=== PATIENT | female | born 1950 | race Caucasian/White ===

== ENCOUNTER 2023-06-08 22:04 | Emergency (ER) | payer MEDICARE ==
[~2023-06-08] VITALS: Ht 160 cm; Wt 53.2 kg
[~2023-06-08 22:04] MED LIST: ASPIRIN ADULT L81 M2 PO; ATARAX,VISTARIL50 MG PO; ATORVASTATIN CA80 M1 PO; CLOPIDOGREL75 MG PO; FUROSEMIDE20 M1 PO; GEMCITABINE IV; KEFLEX500 M1 PO; KENALOG 0.1%80 GM T; METOPROLOL SUCC50 M1 PO
[2023-06-08 22:25] LABS: HEMATOCRIT 37.6 % (37.0-47.0); MEAN CELL VOLUME 85.6 fl (81.0-99.0); MEAN CORPUSCULAR HGB 29.6 pg (27.0-31.0); MEAN CORPUSCULAR HGB CONC 34.6 g/dl (33.0-37.0); MEAN PLATELET VOLUME 8.8 fl (9.6-12.3); PLATELET COUNT AUTOMATED 296 10*3/uL (130-400); RED BLOOD COUNT 4.39 10*6/uL (4.10-5.10); RED CELL DISTRI WIDTH 14.7 % (0-14.5)
[2023-06-08 22:35] LABS: MANUAL DIFF REFLEX YES
[2023-06-08 22:46] LABS: BURR CELLS FEW; PLATELET SUFFICIENCY NORMAL (NORMAL); TOTAL CELLS COUNTED 100 #CELLS
[2023-06-08 22:47] LABS: ACANTHOCYTES FEW
[2023-06-08 22:48] LABS: TOXIC GRANULATION SLIGHT
[2023-06-08 23:01] LABS: ALKALINE PHOSPHATASE 114 U/L (46-116); BUN 15 mg/dl (9-23); CHLORIDE 92 mmol/L (98-107); SGPT/ALT 66 U/L (10-49); TOTAL PROTEIN 5.7 gm/dL (6.0-8.0)
[2023-06-09 03:19] LABS: BILIRUBIN Negative (Negative); BLOOD 2+ (Negative); CLARITY Cloudy (Clear); COLOR Yellow (Yellow); GLUCOSE Negative (Negative); KETONE 1+ (Negative); LEUKO ESTERASE 2+ (Negative); NITRITE Negative (Negative); PH 5.5 (4.5-8.0); SPECIFIC GRAVITY 1.015 (1.001-1.030); UROBILINOGEN 0.2 E.U./dl (0.0-1.0)
[2023-06-09 03:29] LABS: EPITHELIAL CELLS 16-20; WBC 21-30 wbc/hpf (0-5)
[2023-06-09 03:30] LABS: BACTERIA 1+; MUCOUS 1+; YEAST 1+
[2023-06-11 07:48] LABS: BASO % 0.3 % (0.0-1.0); EOS % 0.3 % (1.0-4.0); HEMATOCRIT 35.6 % (37.0-47.0); LYMPH # 0.9 10*3/uL (1.3-4.4); LYMPH % 7.9 % (27.0-41.0); MEAN CELL VOLUME 87.9 fl (81.0-99.0); MEAN CORPUSCULAR HGB 29.9 pg (27.0-31.0); MEAN PLATELET VOLUME 8.5 fl (9.6-12.3); MONO # 0.4 10*3/uL (0.1-1.0); MONO % 3.2 % (3.0-9.0); NEUT # 10.1 10*3/uL (2.3-7.9); NEUT % 87.5 % (47.0-73.0); PLATELET COUNT AUTOMATED 303 10*3/uL (130-400); RED BLOOD COUNT 4.05 10*6/uL (4.10-5.10); RED CELL DISTRI WIDTH 15.4 % (0-14.5); WHITE BLOOD COUNT 11.5 10*3/uL (4.8-10.8)
[2023-06-11 08:14] LABS: ALKALINE PHOSPHATASE 103 U/L (46-116); BUN 12 mg/dl (9-23); CHLORIDE 96 mmol/L (98-107); POTASSIUM 2.9 mmol/L (3.4-5.1); SGPT/ALT 52 U/L (10-49); TOTAL PROTEIN 5.8 gm/dL (6.0-8.0)
== END 2023-06-12 01:04 | disposition short-term general hospital (02) ==
LOC: ED 22:04
PROVIDERS: Family Medicine; Internal Medicine
DX: N39.0 Urinary tract infection, site not specified (principal); E87.8 Other disorders of electrolyte and fluid balance, not elsewhere classified; R79.89 Other specified abnormal findings of blood chemistry; D72.829 Elevated white blood cell count, unspecified; C80.1 Malignant (primary) neoplasm, unspecified; J90 Pleural effusion, not elsewhere classified; E43 Unspecified severe protein-calorie malnutrition; I10 Essential (primary) hypertension; E11.9 Type 2 diabetes mellitus without complications; Z68.1 Body mass index [BMI] 19.9 or less, adult; Z91.041 Radiographic dye allergy status; Z88.8 Allergy status to other drugs, medicaments and biological substances; Z90.49 Acquired absence of other specified parts of digestive tract